=== PATIENT | male | born 1980 | race Caucasian/White ===

== ENCOUNTER 2024-03-15 05:43 | Emergency (ER) | payer OTHER ==
[~2024-03-15] VITALS: Ht 175.3 cm; Wt 99.8 kg
[2024-03-15] MEDS: VANCOMYCIN 1 GM in IV D5W 250 ML IV ONE (07:00)
[2024-03-15 07:07] LABS: BASOPHILS % (AUTO) 0.1 % (0.0-2.0); EOSINOPHILS % (AUTO) 0.2 % (0.0-6.0); HEMATOCRIT 40 % (39-51); HEMOGLOBIN 13.8 g/dL (13.5-17.5); LYMPHOCYTES # (AUTO) 1.3 K/uL (0.8-4.8); LYMPHOCYTES % (AUTO) 12.8 % (20.0-44.0); MEAN CORPUSCULAR HEMOGLOBIN 33 PG (26.0-33.0); MEAN CORPUSCULAR HGB CONC 35 g/dl (31.0-36.0); MEAN CORPUSCULAR VOLUME 94 fL (80-96); MONOCYTES # (AUTO) 0.9 K/uL (0.1-1.30); NEUTROPHILS # (AUTO) 8.2 K/uL (1.8-8.9); NEUTROPHILS % (AUTO) 77.9 % (43.0-81.0); PLATELET COUNT (AUTO) 292 K/uL (150-450); RED BLOOD CELL COUNT(AUTO) 4.23 MIL/uL (4.5-6.0); WHITE BLOOD COUNT (AUTO) 10.5 K/uL (4.3-11.0)
[2024-03-15 07:08] LABS: APPEARANCE,URINE CLEAR (CLEAR); BILIRUBIN,URINE NEGATIVE (NEGATIVE); BLOOD, URINE 3+ Ery/uL (NEGATIVE); COLOR,URINE YELLOW (YELLOW); KETONES,URINE NEGATIVE (NEGATIVE); LEUKOCYTE ESTERASE ,URINE NEGATIVE (NEGATIVE); NITRITE, URINE NEGATIVE (NEGATIVE); PROTEIN,URINE TRACE mg/dl (NEGATIVE); UGLUCOSE NEGATIVE (NEGATIVE)
[2024-03-15 07:25] LABS: ALBUMIN 2.7 g/dL (3.4-5.0); BILIRUBIN,TOTAL 0.6 mg/dL (0.2-1.0); CALCIUM, SERUM 8.9 mg/dL (8.5-10.1); CREATININE 0.9 mg/dL (0.6-1.3); POTASSIUM 4.2 mmol/L (3.5-5.1); TOTAL PROTEIN, SERUM 7.7 g/dL (6.4-8.2)
[2024-03-15 07:29] LABS: INR 1.05 (0.91-1.10); PARTIAL THROMBOPLASTIN TIME 29.5 SEC (24.3-34.3); PROTHROMBIN TIME 11.1 SECS (9.2-11.1)
[2024-03-15 07:34] LABS: LACTIC ACID 0.8 mmol/L (0.4-2.0)
[2024-03-15 07:46] LABS: BILIRUBIN,DIRECT 0.1 mg/dL (0.0-0.2)
[2024-03-15 07:56] LABS: ADD URINE CULTURE NO; BACTERIA,URINE Rare /HPF (None Seen); CALCIUM OXALATE CRYSTALS,UR Few /HPF (None Seen); SQUAMOUS EPITHELIAL CELL,UR Rare /HPF (None Seen); WBC,URINE 0-2 /HPF (0-3)
[2024-03-15 08:40] VITALS: TEMP 98.5
[2024-03-15 14:00] VITALS: BP 155/85; O2SAT 100
== END 2024-03-15 18:30 | disposition short-term general hospital (02) ==
LOC: ER 05:43
DX: L03.115 Cellulitis of right lower limb (principal); I10 Essential (primary) hypertension; E11.9 Type 2 diabetes mellitus without complications
CPT/HCPCS: 99285; 96365; 93971; 71045; 84145; 85025; 80048; 87040; 87086; 83605; 80076; 85652; 81001; 36415; 85730; 86140; J3370; A4223; J7060